=== PATIENT | female | born 1990 | race Caucasian/White ===

== ENCOUNTER 2022-02-21 03:36 | Emergency (ER) | payer OTHER, SELFPAY ==
[2022-02-21] VITALS (14 sets, daily range): BP systolic 90–121; BP diastolic 60–77; PULSE 65–119; RESP 16–18; TEMP 36.9; O2SAT 93–100
--- NOTE | ~2022-02-21 | CT_ITS ---
EXAMINATION: CT abdomen pelvis w con DATE: 02/21/2022 06:16 INDICATION: A few days of low back pain TECHNIQUE: Computed tomography (CT) of the abdomen and pelvis was performed without intravenous contr ast. Automated exposure control and iterative reconstruction technique were employed. The dose-length product was 204.16 mGy-cm. COMPARISON: None FINDINGS: Calcified right lower lobe nodule consistent with old granulomatous disease. Heart size is normal. No pericardial or pleural effusion. Small sliding-type hiatal hernia. Liver, decompressed gallbladder, spleen, pancreas, bilateral adrenal glands and kidneys are normal. Bowels including the appendix are normal. Decompressed bladder, anteverted uterus and bilateral adnexa are unremarkable. Small amount o f likely physiologic free fluid in the cul-de-sac. No abscess or free intraperitoneal gas. No patholo gically enlarged abdominal or pelvic lymphadenopathy. Mild lower lumbar dextrocurvature with multilev el mild lumbar facet osteoarthritis. IMPRESSION: 1. No acute intra-abdominal/pelvic process. 2. Small sliding-type hiatal hernia. Reviewed, dictated and finalized at location A.
[2022-02-21] MEDS: KETOROLAC 30 MG/ML VIAL (*BKC) IV PUSH (04:22)
[2022-02-21] MEDS: SODIUM CHLORIDE 0.9% IV 1,000 ML 999 ML IV CONT ×2 (04:22→06:30)
--- NOTE | 2022-02-21 04:29 | PC.NURSE ---
Patient told about urine sample and asked to use the restroom. Patient unable to urinate at this time.
[2022-02-21 04:49] LABS: Lactic Acid Reflex 1.4 mmol/L (0.7-2.0)
[2022-02-21 05:34] LABS: Bacteria Urine 1+ /hpf; Mucus Urine Few /lpf; Squamous Epithelial Cell Urine Many /hpf (Few)
[2022-02-21 05:37] LABS: Appearance Urine Clear (Clear); Bilirubin Urine 1+ (Negative); Blood Urine Trace-lysed (Negative); Color Urine Yellow (Yellow); Glucose Urine UA Negative (Negative); Ketones Urine Negative (Negative); Leukocyte Esterase Ur Trace LEU/UL (Negative); Nitrate Urine Positive (Negative); Protein Urine Negative (Negative); Specific Grav Ur >= 1.030 (1.001-1.035); Urobilinogen Urine 0.2 mg/dL (<2.0)
[2022-02-21 05:38] LABS: Add Urine Microscopic? YES
[2022-02-21 05:42] LABS: Alanine Aminotransferase 13 U/L (6-35); Albumin Level 3.1 g/dL (3.5-5.1); Alkaline Phosphatase 52 U/L (38-126); Anion Gap 4 mmol/L (8-16); Aspartate Amino Transferase 16 U/L (14-36); Bilirubin,Total 0.2 mg/dL (0.2-1.3); Blood Urea Nitrogen 14 mg/dL (7-17); Calcium 7.6 mg/dL (8.4-10.2); Carbon Dioxide 21 mmol/L (22-30); Chloride 111 mmol/L (98-107); Estimated Glomerular Filt Rate > 60; Glucose 99 mg/dL (65-110); Lipase 155 U/L (23-300); Potassium 3.4 mmol/L (3.4-5.0); Sodium 136 mmol/L (137-145)
[2022-02-21 06:37] LABS: Basophils Percent Auto 0.7 % (0.2-1.2); Eosinophils Percent Auto 0.7 % (0-4.4); Hematocrit 41.2 % (37.0-47.0); Hemoglobin 14.2 g/dL (12.0-15.0); Immature Granulocyte Absolute 0.02 K/mm3 (0.00-0.031); Immature Granulocyte Percent A 0.4 % (0-0.5); Lymphocytes Absolute Auto 1.18 K/mm3 (0.9-3.2); Lymphocytes Percent Auto 20.9 % (18.3-44.2); Mean Corpuscular HGB Conc 34.5 g/dl (32-36); Mean Corpuscular Hemoglobin 34.1 pg (26-34); Mean Corpuscular Volume 98.8 fl (80-100); Mean Platelet Volume 9.5 fl (7.4-10.4); Monocytes Absolute Auto 0.8 K/mm3 (0.1-0.6); Monocytes Percent Auto 14.5 % (2.6-8.5); Neutrophils Absolute Auto 3.6 K/mm3 (1.3-6.7); Neutrophils Percent Auto 62.8 % (45.5-73.1); Platelet Count Result 145 k/mm3 (150-375); Red Blood Count 4.17 M/mm3 (4.2-5.4); Red Cell Distribution Width 12.9 % (11.5-14.5); White Blood Count 5.7 K/mm3 (4.5-10.0)
--- NOTE | 2022-02-21 07:00 | ED.GENADULT ---
HPI - General Adult General Chief complaint: Back Pain/Injury Stated complaint: back pain Time Seen by Provider: 02/21/22 03:39 Source: RN notes reviewed History of Present Illness HPI narrative: Patient presents emergency department from home for bilateral flank pain. Patient states that the symptoms began 2 days ago. States that the pain is aching in nature nothing seems to make the pain better or worse. States it is associated with generalized body aches and subjectively feeling hot and cold. She denies any measured temperature she denies any chest pain, shortness of breath abdominal pain nausea vomiting diarrhea or any other symptoms states she has not taken anything for the pain today Related Data Allergies Allergy/AdvReac Type Severity Reaction Status Date / Time No Known Allergies Allergy Mild Verified 10/08/21 15:57 Review of Systems Review of Systems: Gen.: Denies fevers or chills reports generalized body aches ENT: Denies congestion Respiratory: Denies shortness of breath or cough CV: Denies chest pain or palpitations GI: Denies abdominal pain nausea, emesis or diarrhea reports bilateral flank pain denies burning, urgency, frequency or hematuria Musculoskeletal: Denies back pain or muscle pain Neuro: Denies numbness, tingling, weakness or focal weakness Skin: Denies rash Except as documented, all other systems reviewed and negative [facility] Past Medical History Medical History (Updated 02/21/22 @ 07:26 by Chaz Ogden DO) Patient denies significant medical history Social History Social History (Updated 02/21/22 @ 07:01 by Chaz Ogden DO) Smoking status: Never smoker Exam Narrative: APPEARANCE: No acute distress, nontoxic, resting in bed EYES: EOMI HEENT: Normocephalic, atraumatic, OMM RESPIRATORY: No respiratory distress Clear to auscultation bilaterally with no rhonchi wheezing or rales. CARDIOVASCULAR: Regular rate and rhythm without murmurs rubs or gallops. ABDOMINAL: Soft, nontender, nondistended, no rebound or guarding bilateral flanks tender to palpation worse on right than left with positive percussion tenderness MUSCULOSKELETAl: Moves all extremities. No clubbing, cyanosis or edema. NEURO: Awake and alert. Following commands, speech normal, no focal deficits SKIN:: Warm, dry. No rashes lesions or abrasions PSYCHIATRIC: Normal affect/mood, Course Course Emergency Course: Patient states she is feeling much better at this time Discussed with patient results of workup and diagnosis. Discussed need for follow-up with primary care, proper use of medication, and reasons to return to the emergency department. Patient understands and agrees to current treatment plan Vital Signs Vital signs: Vital Signs Temperature 98.4 F 02/21/22 03:42 Pulse Rate 119 H 02/21/22 03:42 Respiratory Rate 16 02/21/22 03:42 Blood Pressure 90/70 L 02/21/22 03:42 Pulse Oximetry 100 02/21/22 03:42 Oxygen Delivery Room Air 02/21/22 03:42 Temperature 98.4 F 02/21/22 03:42 Pulse Rate 65 02/21/22 09:00 Respiratory Rate 16 02/21/22 09:00 Blood Pressure 115/77 02/21/22 09:00 Pulse Oximetry 100 02/21/22 09:00 Oxygen Delivery Room Air 02/21/22 03:42 Medical Decision Making Vital Signs Vital Signs: Vital Signs Temperature 98.4 F 02/21/22 03:42 Pulse Rate 119 H 02/21/22 03:42 Respiratory Rate 16 02/21/22 03:42 Blood Pressure 90/70 L 02/21/22 03:42 Pulse Oximetry 100 02/21/22 03:42 Oxygen Delivery Room Air 02/21/22 03:42 Temperature 98.4 F 02/21/22 03:42 Pulse Rate 65 02/21/22 09:00 Respiratory Rate 16 02/21/22 09:00 Blood Pressure 115/77 02/21/22 09:00 Pulse Oximetry 100 02/21/22 09:00 Oxygen Delivery Room Air 02/21/22 03:42 Lab Data Result diagrams: 02/21/22 06:26 02/21/22 05:22 Labs: Lab Results 02/21/22 02/21/22 02/21/22 Range/Units 04:20 05:22 05:22 WBC (4.5-10.0) K/m
[2022-02-21] MEDS: SODIUM CHLORIDE 0.9% IV 500 ML 999 ML IV CONT (07:48)
== END 2022-02-21 09:01 | disposition home or self-care (01) ==
PROVIDERS: Emergency Provider Emergency Medicine
DX: N39.0 Urinary tract infection, site not specified (principal); R10.9 Unspecified abdominal pain
CPT/HCPCS: 36415; 74177; 80053; 81001; 81025; 83605; 83690; 85025; 87040; 87077; 87086; 87088; 87186; 96361; 96365; 96375; 99284; J0696; J1885; J7030; J7040; Q9967